=== PATIENT | female | born 1960 | race Caucasian/White ===

== ENCOUNTER → 2017-05-09 | Day surgery (SDC) | payer BC ==
[~2017-05-09] VITALS: Ht 165.1 cm; Wt 76.0 kg
[~2017-05-09] MED LIST: CHLORHEXIDINE GLUCONATE 2 % 1 PACK (2 CLOTHS) TOPICAL PRN; INSULIN HUMAN REGULAR 1,000 UNITS/10 ML VIAL SQ PRN; KETOROLAC TROMETHAMINE 60 MG/2 ML (IM) VIAL IM ONE; LACTATED RINGER'S 1000 ML INJ 1,000 ML IV ONE; LACTATED RINGER'S 1000 ML INJ 1,000 ML ONE; LACTATED RINGER'S 1000 ML IV PRN; METOPROLOL TARTRATE 25 MG TAB PO PRN; MIDAZOLAM HCL 2 MG/2 ML VIAL ONE; ONDANSETRON HCL 4 MG/2 ML VIAL IV PUSH ONE; POVIDONE IODINE 5% (ANTISEPSIS KIT) 4 APPLICATIONS EACH NARE PRN; PROPOFOL 200 MG/20 ML AMP IV ONE; SODIUM CHLORID 0.9% 500 ML IV PRN
[2017-05-09 07:28] VITALS: BP 134/85; PULSE 75; RESP 16; TEMP 97.6; O2SAT 97
--- NOTE | 2017-05-09 08:10 | RADRPT ---
EXAM DATE/TIME: 05/09/2017 08:01 [facility] COMPARISON: No previous studies available for comparison. INDICATIONS : Evaluate for pneumonia, pneumothorax or communicable disease. Pre op hysteroscopy and D&C. MEDICAL HISTORY : None. SURGICAL HISTORY : None. ENCOUNTER: Initial ACUITY: 1 day PAIN SCORE: 0/10 LOCATION: Bilateral chest FINDINGS: The lungs are under aerated with mild prominence to the cardiac silhouette. There is no pleural effu gonzalo or pneumothorax. The portion of the bony skeleton visualized is unremarkable. CONCLUSION: Mild prominence to the cardiac silhouette otherwise negative. Francisco Lucas MD FACR on May 09, 2017 at 8:06 Board Certified Radiologist. This report was verified electronically.
[2017-05-09 09:55] VITALS: PULSE 87
--- NOTE | 2017-05-09 10:47 | EKG ---
Date Performed: 05/09/2017 Time Performed: 07:51:05 PTAGE: 57 years EKG: Sinus rhythm INFERIOR MYOCARDIAL INFARCTION ABNORMAL ECG NO PREVIOUS TRACING DOCTOR: Abrahan Godoy Interpretating Date/Time 05/09/2017 10:45:18
[2017-05-09 11:30] VITALS: BP 138/82; PULSE 77; RESP 16; TEMP 97.9; O2SAT 94
--- NOTE | 2017-05-15 10:49 | PD.OP ---
Operative Report Date of Surgery: May 09, 2017 Preoperative Diagnosis: (1) Endometrial polyp (2) Abnormal perimenopausal bleeding (3) Primary adenocarcinoma of ascending colon Postoperative Diagnosis: (1) Endometrial polyp (2) Abnormal perimenopausal bleeding (3) Primary adenocarcinoma of ascending colon Procedure: hysteroscopy with polypectomy and dilation and curettage Anesthesia: Dr. England, general by LMA Surgeon: Roxana Noel Stripper And Printer(s): n/a Resident Surgeon: n/a Operation and Findings: Indications: Perimenopausal irregular bleeding, endometrial polyp suspected on imaging and in endometrial biopsy. Findings: Patient was found on hysteroscopic view to have [multiple uterine polyps] confirmed to be removed by repeat hysteroscopy post dilation and curettage and polyp extraction. Procedure: Patient was brought to the OR and laid supine on the table. After inducing general anesthesia she was positioned in low stirrups in dorso- lithotomy position. An open-sided speculum was placed in the vagina after Betadine prep and time out. The anterior lip of the cervix was grasped with a single tooth tenaculum, and the cervix was dilated to accept a standard rigid hysteroscope. After viewing, the polyps were extracted with polyps forceps. The endometrium was then thoroughly sampled using a medium sharp curet. Moderate tissue returned. A hysteroscopic view alternating with curettage confirmed that all the findings described above were included in the specimen. The procedure being complete, the instruments were removed, the patient was replaced supine and she was awakened. She was transferred to the PACU breathing on her own in stable condition. Sponge, needle, and instrument counts were correct. Roxana Noel MD May 15, 2017 10:49
== END | disposition home or self-care (01) ==
LOC: PHSDC 07:04
PROVIDERS: ATTEND Obstetrics & Gynecology
DX: N84.0 Polyp of corpus uteri (principal); N92.4 Excessive bleeding in the premenopausal period; C18.2 Malignant neoplasm of ascending colon; R94.31 Abnormal electrocardiogram [ECG] [EKG]; Z01.810 Encounter for preprocedural cardiovascular examination
CPT/HCPCS: 00952; 58558; 71010; 88305; 93005; J1885; J2250; J2405; J3010; J7120

== ENCOUNTER → 2017-06-08 | Day surgery (SDC) | payer BC ==
[~2017-06-08] VITALS: Ht 162.6 cm; Wt 74.0 kg
[~2017-06-08] MED LIST changes: +FAMOTIDINE 20 MG/2 ML VIAL ONE; +HEPARIN SODIUM - IV 10,000 UNITS/10 ML VIAL ONE; +HYDR-3516 PO; -KETOROLAC TROMETHAMINE 60 MG/2 ML (IM) VIAL IM ONE; +LABETALOL HCL 100 MG/20 ML VIAL ONE; -LACTATED RINGER'S 1000 ML INJ 1,000 ML IV ONE; -LACTATED RINGER'S 1000 ML INJ 1,000 ML ONE; +LIDOCAINE HCL 1% PF 30 ML VIAL ONE; +MORPHINE SULFATE 4 MG/ML INJ ONE; -ONDANSETRON HCL 4 MG/2 ML VIAL IV PUSH ONE; +SODIUM BICARBONATE 8.4% INJ 50 ML ONE; +SODIUM CHLORIDE 0.9% 20 ML VIAL ONE; +VANCOMYCIN HCL 1000 MG ON-CALL/NS 250 ML IV PRN; +VANCOMYCIN HCL 1000 MG VIAL ONE; +ceFAZolin INJ 1,000 MG VIAL ONE
[2017-06-08 08:49] VITALS: BP 136/94; PULSE 82; RESP 18; TEMP 97.5; O2SAT 96
--- NOTE | 2017-06-08 11:09 | HHI.PR ---
cc: Rishabh Phillips MD Immediate Post Op Note Procedure Date: Jun 08, 2017 Pre Op Diagnosis: Adenocarcinoma ascending colon with need for IV chemotherapy Post Op Diagnosis: Same Surgeon: Rishabh Phillips Aluminum Boat Inspector(s): None Procedure: Txtkjn-e-xocs placement with intraoperative use of fluoroscopy Complications: None Specimen(s) removed: None Estimated blood loss: <10 ml Anesthesia: TIVA Drains: None IVF (900 ml) Patient to: PACU Patient Condition: Good Date/Time of Procedure: SEE SURGICAL CARE RECORD Rishabh Phillips MD Jun 08, 2017 11:09
--- NOTE | 2017-06-08 11:17 | RADRPT ---
EXAM DATE/TIME: 06/08/2017 11:08 [facility] COMPARISON: No previous studies available for comparison. INDICATIONS : Post infusaport placement. MEDICAL HISTORY : Carcinoma, colon. SURGICAL HISTORY : Tonsillectomy. Lumbar spine surgery. D&C. ENCOUNTER: Subsequent ACUITY: 1 day PAIN SCORE: 0/10 LOCATION: Left chest FINDINGS: A single frontal expiratory view of the chest was performed. The lungs are symmetrically aerated and clear. No evidence of pneumothorax. Mediastinal structures are in the midline. Lljgts-h-Fhnd in g ood position. The cardio-mediastinal contours and bronchopulmonary markings are unremarkable for an expiratory exam . Osseous structures are intact. CONCLUSION: There is no pneumothorax. Francisco Lucas MD FACR on June 08, 2017 at 11:15 Board Certified Radiologist. This report was verified electronically.
--- NOTE | 2017-06-08 11:38 | MP ---
cc: ANSLEY BOBBY M.D., ABDUL J. M.D. DATE OF SURGERY: 06/08/2017 PROCEDURE Xyihbt-S-Ovix placement with intraoperative use of fluoroscopy. PREOPERATIVE DIAGNOSIS Adenocarcinoma of the colon with need for IV chemotherapy. POSTOPERATIVE DIAGNOSIS Adenocarcinoma of the colon with need for IV chemotherapy. ANESTHESIA TIVA. SURGEON Alan. ESTIMATED BLOOD LOSS Less than 10 mL. FLUIDS 900 mL crystalloid. COMPLICATIONS None. DRAINS None. SPECIMEN None. PROCEDURE IN DETAIL The patient was taken to the operating room and placed on the operating table in the supine position. A roll was placed behind the spine in a longitudinal fashion. IV sedation was begun and the neck and chest were prepped and draped bilaterally. A timeout was taken, confirming the correct patient, site and procedure to be performed. The patient was placed in Trendelenburg position and the left subclavian region was infiltrated with local anesthetic. The left subclavian vein was accessed on the second attempt and a guidewire passed and seen to pass into the superior vena cava under fluoroscopy. The needle was withdrawn and a port pocket created inferior to the exit site of the wire. This was infiltrated with local anesthetic, incised in the skin and the pocket created with electro-dissection. The catheter was brought through a short tunnel from the exit site of the wire to the pocket and secured in place. An introducer and sheath were passed over the guidewire and seen to travel smoothly into the superior vena cava. The guidewire and introducer were removed and the catheter placed down the sheath. The sheath was peeled away and the catheter was withdrawn so that the tip was in the superior vena cava. The catheter was trimmed to length and then attached to the port. The hub was then snapped over this further reinforcing the connector. The port was placed into the pocket and secured at two points with 2-0 Prolene suture. The port was accessed with a Penaloza needle and good blood return was achieved. The catheter was re-flushed with 5 mL of 100 units per milliliter of heparinized saline. The port pocket was re-inspected and seen to be hemostatic. The port pocket and percutaneous puncture site were both closed with interrupted and buried 3-0 Vicryl suture. The skin in the port site was closed with 5-0 PDS in a running subcuticular fashion. The wounds were dressed with Steri-Strips. The patient was taken back to the recovery room in stable condition. A stat. portable chest x-ray was taken and the result is pending at this time. Sponge, needle and instrument counts were reported to be correct. The patient tolerated the procedure well. MD LIDIA Peacock/AMY /11:21 AM /11:29 AM
[2017-06-08 12:50] VITALS: BP 130/81; PULSE 85; RESP 16; TEMP 98; O2SAT 100
== END | disposition home or self-care (01) ==
LOC: PHSDC 08:00
PROVIDERS: ATTEND Surgery Trauma Surgery
DX: C18.2 Malignant neoplasm of ascending colon (principal)
CPT/HCPCS: 00532; 36561; 71010; 77001; C1788; J1644; J2250; J2270; J3370; J7050; J7120; J0690

== ENCOUNTER 2018-07-17 19:08 | Observation (INO) ==
[2018-07-17] MEDS ORDERED: Acetaminophen 325 MG Tablet PO ONE (19:53)
--- NOTE | 2018-07-17 19:58 | XR ---
EXAM DATE: 07/17/2018 7:54 PM EDT AGE/SEX: 58 years / Female INDICATIONS: Short of breath, chest pain. Previous liver biopsy 1 day ago. CLINICAL DATA: This is the patient's initial encounter. Patient reports that signs and symptoms have been present for 1 day and indicates a pain score of 0/10. MEDICAL/SURGICAL HISTORY: Carcinoma, colon. Tonsillectomy. Lumbar spine surgery. D&C. COMPARISON: [facility], CHEST EXPIRATION ONLY, 06/08/2017. . FINDINGS: A single AP portable semierect view of the chest was obtained. The study is more mid inspiratory with crowding of the lung vasculature. There is apparent atelectasis at the lung bases with mild blunting of both costophrenic angles. The heart size remains mildly prominent. The previously noted left side d central venous line has been removed. CONCLUSION: 1. Mid inspiratory exam with crowding of the lung vasculature and apparent atelectasis at the lung b ases. 2. Mild cardiomegaly with no evidence of pulmonary edema. 3. Blunting of both costophrenic angles most characteristic of small effusions. Electronically signed by: Rishabh Frederick MD 07/17/2018 7:56 PM EDT
--- NOTE | 2018-07-17 19:58 | ED ---
HPI General Chief complaint: Abdominal Pain Stated complaint: Pain in R abdomen/sob Time Seen by Provider: 07/17/18 19:33 History of Present Illness HPI narrative: 58-year-old female who had a liver biopsy yesterday, here for evaluation of right upper quadrant abdominal pain and shortness of breath. Symptoms started shortly after the procedure yesterday and have persisted throughout the day today. Shortness of breath is at rest and worse with exertion. Pain is moderate, constant, sharp, worse with movements. She took an oxycodone at around 6:00 PM. Triage vital signs show temp of 99.7 with a heart rate of 110 and an oxygen saturation of 94% on room air. She denies cough or hemoptysis. She has history of colon cancer that was treated last year with resection and chemotherapy by Dr. Barajas. Related Data Home Medications Medication Instructions Recorded Confirmed duloxetine 60 mg PO DAILY 07/16/18 07/17/18 Allergies Allergy/AdvReac Type Severity Reaction Status Date / Time penicillin G Allergy Severe Hives Verified 07/17/18 19:20 shellfish derived Allergy Severe Hives Verified 07/17/18 19:20 Review of Systems ROS: all other systems reviewed are negative PMFSH Social History Social History Substance History: No History of Abuse Second Hand Smoke Exposure: No Smoking Status: Never smoker How Often Do You Have a Drink Containing Alcohol: Monthly or less Recent Travel in [place] within the Last 8 Weeks: No Recent Out of Country Travel within the Last 8 Weeks: No Immunization History Tetanus Immunization: Unsure Hx Influenza Vaccine This Season: No Exam Narrative Exam Narrative: GENERAL: Well-developed, well-nourished, awake, alert, no apparent distress. SKIN: Focused skin assessment warm/dry. Right upper quadrant abdomen/right lower/lateral chest wall with puncture wound from biopsy performed yesterday without warmth erythema, no fluctuance or induration. HEAD: Atraumatic. Normocephalic. EYES: Pupils equal and round. No scleral icterus. No injection or drainage. ENT: No nasal bleeding or discharge. Mucous membranes pink and moist. NECK: Trachea midline. No JVD. CARDIOVASCULAR: Tachycardic, rate 110, regular. RESPIRATORY: No accessory muscle use. Clear to auscultation. Breath sounds equal bilaterally. GASTROINTESTINAL: Abdomen soft, nondistended. Mild right upper quadrant tenderness without peritoneal signs. Normal bowel sounds. MUSCULOSKELETAL: No obvious deformities. No clubbing. No cyanosis. No edema. NEUROLOGICAL: Awake and alert. No obvious cranial nerve deficits. Motor grossly within normal limits. Normal speech. PSYCHIATRIC: Appropriate mood and affect; insight and judgment normal. Course Initial Documented Vital Signs Temperature 99.7 F H 07/17/18 19:17 Pulse Rate 115 H 07/17/18 19:17 Respiratory Rate 16 07/17/18 19:17 Blood Pressure 178/74 H 07/17/18 19:17 Pulse Oximetry 94 L 07/17/18 19:17 Last Documented Vital Signs Temperature 99.7 F H 07/17/18 19:17 Pulse Rate 100 H 07/17/18 21:09 Respiratory Rate 18 07/17/18 21:09 Blood Pressure 123/82 07/17/18 21:09 Pulse Oximetry 95 07/17/18 21:09 Medical Decision Making MDM Narrative Medical decision making narrative: Labs, vitals, and imaging studies were reviewed and were reviewed with the patient and the patient's significant other. Patient has a fever and tachycardia with shortness of breath and hypoxia after having a liver biopsy yesterday. Chest x-ray shows no pneumothorax. She was empirically started on Rocephin and azithromycin for possible pneumonia. CT abdomen pelvis and CT thorax both revealed atelectasis, right greater than left. Patient has been splinting because of the pain from her procedure. I offered to give her pain medication, however she has declined morphine, stating that she took oxycodone at home at around 6:00 PM. She will be admitted for further treatment and evaluation of sepsis/SIRS with possible pneumonia. Case discussed with hospitalist nurse practitioner Corine who will admit the hospitalist service. Medical Screen Exam Complete: Yes Emergency Medical Condition: Yes Differential Diagnosis Differential Diagnosis: Pneumothorax, pneumonia, abscess, perforated bowel, Medical Records Medical records reviewed: Yes I reviewed the patient's medical records. Lab Data Result diagrams: 07/17/18 20:10 07/17/18 20:10 Lab Results 07/17/18 07/17/18 07/17/18 Range/Units 20:10 20:10 20:10 CBC w Diff Auto diff final WBC 11.9 H (4.0-11.0) th/mm3 RBC 3.80 L (4.00-5.30) mil/mm3 Hgb 11.6 (11.6-15.3) gm/dL Hct 34.3 L (35.0-46.0) % MCV 90.2 (80.0-100.0) fL MCH 30.4 (27.0-34.0) pg MCHC 33.7 (32.0-36.0) % RDW 13.4 (11.6-17.2) % Plt Count 242 (150-450) th/mm3 MPV 6.4 L (7.0-11.0) fL Neut % (Auto) 73.9 H (16.0-70.0) % Lymph % (Auto) 16.1 (9.0-44.0) % [place] % (Auto) 9.2 H (0.0-8.0) % Eos % (Auto) 0.6 (0.0-4.0) % Baso % (Auto) 0.2 (0.0-2.0) % Neut # (Auto) 8.8 H (1.8-7.7) th/mm3 Lymph # (Auto) 1.9 (1.0-4.8) th/mm3 [place] # (Auto) 1.1 H (0.0-0.9) th/mm3 Eos # (Auto) 0.1 (0.0-0.4) th/mm3 Baso # (Auto) 0.0 (0.0-0.2) th/mm3 WBC Differential . Differential Comment . PT 12.6 H (9.8-11.6) sec INR 1.2 Ratio APTT 28.7 (24.3-30.1) sec Sodium 138 (136-145) meq/L Potassium 3.7 (3.5-5.1) meq/L Chloride 102 (98-107) meq/L Carbon Dioxide 28.7 (21.0-32.0) meq/L Anion Gap 7 (5-15) meq/L BUN 23 H (7-18) mg/dL Creatinine 0.71 (0.50-1.00) mg/dL Estimated GFR 85 L (>89) mL/min Random Glucose 112 H (74-106) mg/dL Lactic Acid (0.4-2.0) mmol/L Calcium 8.8 (8.5-10.1) mg/dL Total Bilirubin 0.4 (0.2-1.0) mg/dL AST 42 H (15-37) U/L ALT 34 (10-53) U/L Alkaline Phosphatase 121 H (45-117) U/L Total Protein 7.3 (6.4-8.2) g/dL Albumin 3.4 (3.4-5.0) g/dL 07/17/18 Range/Units 20:10 CBC w Diff WBC (4.0-11.0) th/mm3 RBC (4.00-5.30) mil/mm3 Hgb (11.6-15.3) gm/dL Hct (35.0-46.0) % MCV (80.0-100.0) fL MCH (27.0-34.0) pg MCHC (32.0-36.0) % RDW (11.6-17.2) % Plt Count (150-450) th/mm3 MPV (7.0-11.0) fL Neut % (Auto) (16.0-70.0) % Lymph % (Auto) (9.0-44.0) % [place] % (Auto) (0.0-8.0) % Eos % (Auto) (0.0-4.0) % Baso % (Auto) (0.0-2.0) % Neut # (Auto) (1.8-7.7) th/mm3 Lymph # (Auto) (1.0-4.8) th/mm3 [place] # (Auto) (0.0-0.9) th/mm3 Eos # (Auto) (0.0-0.4) th/mm3 Baso # (Auto) (0.0-0.2) th/mm3 WBC Differential Differential Comment PT (9.8-11.6) sec INR Ratio APTT (24.3-30.1) sec Sodium (136-145) meq/L Potassium (3.5-5.1) meq/L Chloride (98-107) meq/L Carbon Dioxide (21.0-32.0) meq/L Anion Gap (5-15) meq/L BUN (7-18) mg/dL Creatinine (0.50-1.00) mg/dL Estimated GFR (>89) mL/min Random Glucose (74-106) mg/dL Lactic Acid 0.8 (0.4-2.0) mmol/L Calcium (8.5-10.1) mg/dL Total Bilirubin (0.2-1.0) mg/dL AST (15-37) U/L ALT (10-53) U/L Alkaline Phosphatase (45-117) U/L Total Protein (6.4-8.2) g/dL Albumin (3.4-5.0) g/dL Imaging Data Radiologist's impression: Chest X-Ray 07/17/18 19:38 CONCLUSION: 1. Mid inspiratory exam with crowding of the lung vasculature and apparent atelectasis at the lung bases. 2. Mild cardiomegaly with no evidence of pulmonary edema. 3. Blunting of both costophrenic angles most characteristic of small effusions. Abdomen/Pelvis CT 07/17/18 20:04 CONCLUSION: 1. Mild postbiopsy changes adjacent to the known large liver lesion with several adjacent small gas bubbles along the lesion and minimal amount of fluid and gas bubbles along the lateral anterior margin of the liver. 2. Atelectasis in the lung bases right greater than left. 3. Cardiomegaly and small pericardial effusion. Chest CT 07/17/18 20:04 CONCLUSION: 1. Atelectasis in both lung bases right greater than left. 2. There is no pneumothorax. 3. Mild cardiomegaly and small pericardial effusion. Discharge Plan Discharge Disposition Patient Disposition: 30 Still Patient Discharge Condition Condition: Stable Discharge Details Diagnosis: Sepsis, Hypoxia Physicians Team ED Provider: Jamie Edmonds Primary Care Provider: Marilynn Quarles Rxs /Orders / Referrals /Forms Prescriptions: No Action duloxetine 60 mg Capsule,Delayed Release(Dr/Ec) 60 mg PO DAILY RF: 0 Status ED Status: With Doctor
[2018-07-17] MEDS ORDERED: Sod Chloride 0.9% Inj 1,000 ML IV.SIG SCH (20:00)
[2018-07-17] MEDS ORDERED: Azithromycin Inj 500 MG in Sodium Chlor 0.9% Inj 250 ML IV.SIG ONE (20:04)
[2018-07-17 20:21] LABS: Baso % (Auto) 0.2 % (0.0-2.0); Eos # (Auto) 0.1 th/mm3 (0.0-0.4); Eos % (Auto) 0.6 % (0.0-4.0); Hematocrit 34.3 % (35.0-46.0); Hemoglobin 11.6 gm/dL (11.6-15.3); Lymph # (Auto) 1.9 th/mm3 (1.0-4.8); Lymph % (Auto) 16.1 % (9.0-44.0); Mean Corpuscular HGB Conc 33.7 % (32.0-36.0); Mean Corpuscular Hemoglobin 30.4 pg (27.0-34.0); Mean Corpuscular Volume 90.2 fL (80.0-100.0); Mean Platelet Volume 6.4 fL (7.0-11.0); Mono # (Auto) 1.1 th/mm3 (0.0-0.9); Mono % (Auto) 9.2 % (0.0-8.0); Neut # (Auto) 8.8 th/mm3 (1.8-7.7); Neut % (Auto) 73.9 % (16.0-70.0); Platelet Count 242 th/mm3 (150-450); Red Cell Distribution Width 13.4 % (11.6-17.2); White Blood Count 11.9 th/mm3 (4.0-11.0)
[2018-07-17 20:29] LABS: Chloride 102 meq/L (98-107); Potassium 3.7 meq/L (3.5-5.1); Sodium 138 meq/L (136-145)
[2018-07-17 20:32] LABS: Calcium 8.8 mg/dL (8.5-10.1)
[2018-07-17 20:33] LABS: Albumin 3.4 g/dL (3.4-5.0); Anion Gap 7 meq/L (5-15); Blood Urea Nitrogen 23 mg/dL (7-18); Carbon Dioxide 28.7 meq/L (21.0-32.0); Glucose,Random 112 mg/dL (74-106)
[2018-07-17 20:35] LABS: Activated Partial Thrombo Time 28.7 sec (24.3-30.1); INR 1.2 Ratio; Prothrombin Time 12.6 sec (9.8-11.6)
[2018-07-17 20:36] LABS: Alanine Aminotransferase 34 U/L (10-53); Aspartate Aminotransferase 42 U/L (15-37); Glomerular Filtration Rate 85 mL/min (>89)
[2018-07-17 20:37] LABS: Total Protein 7.3 g/dL (6.4-8.2)
[2018-07-17 20:39] LABS: Alkaline Phosphatase 121 U/L (45-117)
--- NOTE | 2018-07-17 21:03 | CT ---
EXAM DATE: 07/17/2018 8:52 PM EDT AGE/SEX: 58 years / Female INDICATIONS: Right chest pain post liver biopsy one day ago. Shortness of breath. CLINICAL DATA: This is the patient's initial encounter. Patient reports that signs and symptoms have been present for 1 day and indicates a pain score of 10/10. MEDICAL/SURGICAL HISTORY: Carcinoma, colon. Fusion, lumbar. RADIATION DOSE: 14.91 CTDI (mGy) ; Combined studies COMPARISON: No prior exams available for comparison. TECHNIQUE: Multiple contiguous axial images were obtained through the chest without contrast. Image s were obtained in suspended respiration using multiple row detector helical technique. Using automa lola exposure control and adjustment of the mA and/or kV according to patient size, radiation dose was kept as low as reasonably achievable to obtain optimal diagnostic quality images. DICOM format imag e data is available electronically for review and comparison. FINDINGS: Lungs: The lungs are symmetrically aerated. Atelectasis is present in the lung bases right greater t chavez left. Nodular densities are seen. There is no pneumothorax. Mediastinum: There is good visualization of the great vessels of the middle mediastinum. No evidenc e of mediastinal or hilar adenopathy/mass. As mild cardiomegaly. There is a small amount pericardial effusion. Pleurae: No evidence of focal thickening or pleural effusion. Axillae: Unremarkable. Bony Structures: Unremarkable. Miscellaneous: The examination was extended to include the upper abdomen, and both adrenal glands ar e normal in size and configuration. CONCLUSION: 1. Atelectasis in both lung bases right greater than left. 2. There is no pneumothorax. 3. Mild cardiomegaly and small pericardial effusion. Electronically signed by: Rishabh Frederick MD 07/17/2018 9:02 PM EDT
--- NOTE | 2018-07-17 21:10 | CT ---
EXAM DATE: 07/17/2018 8:54 PM EDT AGE/SEX: 58 years / Female INDICATIONS: Right upper quadrant pain post liver biopsy one day ago. CLINICAL DATA: This is the patient's initial encounter. Patient reports that signs and symptoms have been present for 1 day and indicates a pain score of 10/10. MEDICAL/SURGICAL HISTORY: Carcinoma, colon. Fusion, lumbar. RADIATION DOSE: 14.91 CTDI (mGy) ; Combined studies COMPARISON: POI, CT ABDOMEN AND PELVIS W/O CONTRAST, 06/27/2018. . TECHNIQUE: Multiple contiguous axial images were obtained through the abdomen. Images were obtained using multiple row detector helical technique. Using automated exposure control and adjustment of the mA and/or kV according to patient size, radiation dose was kept as low as reasonably achievable to o btain optimal diagnostic quality images. DICOM format image data is available electronically for rev iew and comparison. FINDINGS: Lower Lungs: Atelectasis in the lung bases right greater than left. There is mild cardiomegaly and sm all pericardial effusion. Liver: The liver remains normal in size. The large low-attenuation lesion in the anterior lower right lobe is again noted and does not appear significantly changed. This measures up to at least 6.5 cm i n diameter. There are mild adjacent postbiopsy changes with small amount of air adjacent to the lesio n. There is a small amount of air and fluid along the anterior lateral liver margin as well. The smal l cystic structure is again noted adjacent to the larger mass. Spleen: Homogeneous density without enlargement. Pancreas: Unremarkable without mass or calcification. Kidneys: Normal in size and shape. No evidence of mass or hydronephrosis. Adrenal Glands: Unremarkable. Aorta: The aorta and proximal iliac vessels are grossly unremarkable without aneurysmal dilation. Bowel/Mesentery: No oral contrast was given limiting the sensitivity. There are postoperative change s status post partial colectomy with anastomotic ed. There is scattered diverticuli. There is no free air or fluid. Abdominal Wall: Intact. Retroperitoneum: No evidence of adenopathy in the retrocrural, para-aortic, or deep pelvic regions. Bladder: Contours are smooth. Reproductive Organs: There is a small cystic structure in the left adnexa measuring 1.9 cm. Uterus a nd right adnexa are unremarkable. Inguinal: The inguinal region is unremarkable without evidence of adenopathy. Bony Structures: Unremarkable. CONCLUSION: 1. Mild postbiopsy changes adjacent to the known large liver lesion with several adjacent small gas bubbles along the lesion and minimal amount of fluid and gas bubbles along the lateral anterior trena n of the liver. 2. Atelectasis in the lung bases right greater than left. 3. Cardiomegaly and small pericardial effusion. Electronically signed by: Rishabh Frederick MD 07/17/2018 9:09 PM EDT
[2018-07-17] MEDS ORDERED: Acetaminophen 325 MG Tablet PO PRN (21:58)
[2018-07-18 07:30] LABS: Baso % (Auto) 0.1 % (0.0-2.0); Eos # (Auto) 0.1 th/mm3 (0.0-0.4); Eos % (Auto) 1.5 % (0.0-4.0); Hematocrit 30.5 % (35.0-46.0); Hemoglobin 10.6 gm/dL (11.6-15.3); Lymph # (Auto) 1.9 th/mm3 (1.0-4.8); Lymph % (Auto) 24.2 % (9.0-44.0); Mean Corpuscular HGB Conc 34.8 % (32.0-36.0); Mean Platelet Volume 6.6 fL (7.0-11.0); Mono # (Auto) 0.8 th/mm3 (0.0-0.9); Neut # (Auto) 4.9 th/mm3 (1.8-7.7); Neut % (Auto) 64.2 % (16.0-70.0); Platelet Count 205 th/mm3 (150-450); Red Blood Count 3.43 mil/mm3 (4.00-5.30); Red Cell Distribution Width 13.6 % (11.6-17.2); White Blood Count 7.7 th/mm3 (4.0-11.0)
[2018-07-18 07:31] LABS: Chloride 109 meq/L (98-107); Potassium 3.7 meq/L (3.5-5.1); Sodium 145 meq/L (136-145)
[2018-07-18 07:34] LABS: Calcium 8.3 mg/dL (8.5-10.1)
[2018-07-18 07:35] LABS: Anion Gap 7 meq/L (5-15); Blood Urea Nitrogen 16 mg/dL (7-18); Carbon Dioxide 29.3 meq/L (21.0-32.0); Glucose,Random 89 mg/dL (74-106)
[2018-07-18 07:38] LABS: Glomerular Filtration Rate Greater Than 89 mL/min (>89)
--- NOTE | 2018-07-18 11:25 | P.HP ---
History of Present Illness Primary Care Physician: Marilynn Quarles Chief Complaint: Chest discomfort, abdominal pain History of Present Illness: 58-year-old female with known history of colon cancer who is underwent liver biopsy secondary to liver mass on Sunday of this week. Ever since her biopsy the patient has had increased pain in her right abdomen. Because of that she has not been taking deep breaths. Patient states that when she takes deep breath it causes significant amount of pain so she blunts her respirations. Patient was told only to take Advil when she was discharged from the biopsy procedure. Patient states that the pain was more severe and she was taking some oxycodone at home with minimal relief. Because the pain did not improve and she started developing some shortness of breath, pleuritic chest pain she came to the hospital for evaluation. Upon evaluation patient did undergo CT scan which did show atelectasis of the lungs bilaterally right greater than left. CT the abdomen did not show any acute finding. Did indicate post biopsy findings. No lung mass, infiltrates, pneumonia appreciated on CT. Patient denies any fever, chills. She still indicates that she does have pain on her right upper abdomen when she takes a deep breath. - Diagnosis (1) Atelectasis (2) Pleuritic chest pain Inpatient Certification: I certify that the inpatient services were ordered in accordance with Medicare regulations governing the order. This includes certification that hospital inpatient services are reasonable and necessary and in the case of services not specified as inpatient-only under 42 CFR 419.22(n), that they are appropriately provided as inpatient services in accordance to with the 2-midnight benchmark under 43 CFR 412.3(e) Estimated Total Length of Stay (Days): 2 Plans for Post Hospital Care: Home Review of Systems All other systems reviewed negative except as stated in HPI Respiratory: Reports pain with cough, Reports shortness of breath PMFSH - History History Provided By: Patient, Family Member - Medical History Medical History: Medical History (Last Reviewed 07/18/18 @ 11:15 by LEOPOLDO Black) Abnormal colonoscopy Colon cancer - Surgical History Surgical History: Surgical History (Last Updated 07/18/18 @ 11:14 by LEOPOLDO Black) History of liver biopsy History of lumbar surgery - Family History Family History: Family History (Last Updated 07/18/18 @ 11:15 by LEOPOLDO Black) Other No pertinent family history - Tobacco History Second Hand Smoke Exposure: No Tobacco Use In Past 30 Days: No Smoking Status: Never smoker - Alcohol History How Often Do You Have a Drink Containing Alcohol: Never - Substance Use History Substance History: No History of Abuse - Travel History Recent Travel in the [place] Within the Last 8 Weeks: No Recent Travel Out of the Country Within the Last 8 Weeks: No - Immunization History Tetanus Immunization: Unsure Hx Influenza Vaccine This Season: No Medications and Allergies Active Medications: Active Medications Acetaminophen (Tylenol) 650 mg PO Q4H PRN PRN Reason: Temp > 100.4 Sodium Chloride (Ns Inj) 1,000 mls @ 0 mls/hr IV.SIG .Q0M GIRISH Last Infusion: 07/17/18 21:33 Dose: Infused Ondansetron HCl (Zofran Inj) 4 mg IV.PUSH Q6H PRN PRN Reason: NAUSEA OR VOMITING Oxycodone/Acetaminophen (Percocet 5/325 Mg) 1 tab PO Q4H PRN PRN Reason: pain 1 to 10 Last Admin: 07/18/18 04:13 Dose: 1 tab Allergies Allergy/AdvReac Type Severity Reaction Status Date / Time penicillin G Allergy Severe Hives Verified 07/17/18 19:20 shellfish derived Allergy Severe Hives Verified 07/17/18 19:20 Home Medications Medication Instructions Recorded Confirmed Type duloxetine 60 mg PO DAILY 07/16/18 07/17/18 History Exam Vital signs: Vital Signs 07/17/18 19:17 07/17/18 20:18 07/17/18 21:09 Temperature 99.7 F H Pulse Rate 115 H 104 H 100 H Respiratory Rate 16 18 Blood Pressure 178/74 H 123/82 Pulse Oximetry 94 L 94 L 95 07/17/18 22:31 07/17/18 22:59 07/18/18 00:00 Temperature 97.4 F L 96.2 F L Pulse Rate 100 H 101 H 100 H Respiratory Rate 18 16 16 Blood Pressure 131/78 128/84 113/72 Pulse Oximetry 96 95 94 L 07/18/18 04:00 07/18/18 08:00 Temperature 96.1 F L 98.8 F Pulse Rate 96 H 93 H Respiratory Rate 16 19 Blood Pressure 120/81 126/85 Pulse Oximetry 93 L 94 L Intake & Output 09/10/2207/18/18 07/18/18 18:59 06:59 18:59 Intake Total 1350 / 1350 240 / 240 Output Total 201 / 201 Balance 1350 / 1350 39 / 39 Weight 72.5 kg Intake: IV 1350 / 1350 Azithromycin Inj 500 MG In NS 250 / 250 Inj 250 ML @ 250 mls/hr IV.SIG ONCE ONE Rx#:[id number] NS Inj 1,000 ML @ Wide Open IV. 1000 / 1000 SIG .Q0M GIRISH Rx#:[id number] Rocephin Inj 1,000 MG In NS Inj 100 / 100 100 ML @ 200 mls/hr IV.SIG ONCE ONE Rx#:[id number] Oral 240 / 240 Output: Urine 200 / 200 Stool Other: Date of Last Bowel Movement 07/18/18 Narrative: GENERAL: Well-developed, well-nourished, in no acute distress. alert and orientated HEENT: Head is normocephalic without any lesions or masses noted. Facial features are symmetric. Eyes: Pupils equal round reactive to light. Extraocular muscles are intact. Conjunctivae were clear. Oropharyngeal: Pharynx without any erythema edema. Tongue is midline without deviation. Buccal mucosa is moist without any masses or lesions NECK: Supple without any masses. Trachea midline no deviation. No JVD, no bruits are appreciated CARDIAC: Regular rhythm, regular rate. S1/S2 are heard. No murmurs gallops or rubs. LUNGS: Clear to auscultation bilaterally. No wheeze, rhonchi or rales. No use of accessory muscles on inspiration or expiration. Pain in the right abdomen with deep inspiration ABDOMEN: Soft, nontender. Nondistended. Bowel sounds heard in all 4 quadrants. No organomegaly or masses. Negative rebound, negative guarding EXTREMITIES: No edema, pulses are equal bilaterally. No cyanosis or clubbing NEUROLOGY: Mood and affect appear appropriate. Cranial nerves II through XII grossly intact. Muscle strength 5/5 in upper and lower extremities bilaterally. Deep tendon reflexes are 2+ in upper and lower extremities bilaterally. Results - Labs CBC & Chem 7: 07/18/18 07:04 07/18/18 07:04 Labs: Laboratory Results - last 24 hr 07/17/18 07/17/18 07/17/18 20:10 20:10 20:10 CBC w Diff Auto diff final WBC 11.9 H RBC 3.80 L Hgb 11.6 Hct 34.3 L MCV 90.2 MCH 30.4 MCHC 33.7 RDW 13.4 Plt Count 242 MPV 6.4 L Neut % (Auto) 73.9 H Lymph % (Auto) 16.1 [place] % (Auto) 9.2 H Eos % (Auto) 0.6 Baso % (Auto) 0.2 Neut # (Auto) 8.8 H Lymph # (Auto) 1.9 [place] # (Auto) 1.1 H Eos # (Auto) 0.1 Baso # (Auto) 0.0 WBC Differential . Differential Comment . PT 12.6 H INR 1.2 APTT 28.7 Sodium 138 Potassium 3.7 Chloride 102 Carbon Dioxide 28.7 Anion Gap 7 BUN 23 H Creatinine 0.71 Estimated GFR 85 L POC Glucose Random Glucose 112 H Lactic Acid Calcium 8.8 Total Bilirubin 0.4 AST 42 H ALT 34 Alkaline Phosphatase 121 H Total Protein 7.3 Albumin 3.4 07/17/18 07/18/18 07/18/18 20:10 07:04 07:04 CBC w Diff Auto diff final WBC 7.7 RBC 3.43 L Hgb 10.6 L Hct 30.5 L MCV 89.0 MCH 31.0 MCHC 34.8 RDW 13.6 Plt Count 205 MPV 6.6 L Neut % (Auto) 64.2 Lymph % (Auto) 24.2 [place] % (Auto) 10.0 H Eos % (Auto) 1.5 Baso % (Auto) 0.1 Neut # (Auto) 4.9 Lymph # (Auto) 1.9 [place] # (Auto) 0.8 Eos # (Auto) 0.1 Baso # (Auto) 0.0 WBC Differential . Differential Comment . PT INR APTT Sodium 145 Potassium 3.7 Chloride 109 H Carbon Dioxide 29.3 Anion Gap 7 BUN 16 Creatinine 0.59 Estimated GFR Greater than 89 POC Glucose Random Glucose 89 Lactic Acid 0.8 Calcium 8.3 L Total Bilirubin AST ALT Alkaline Phosphatase Total Protein Albumin 07/18/18 09:42 CBC w Diff WBC RBC Hgb Hct MCV MCH MCHC RDW Plt Count MPV Neut % (Auto) Lymph % (Auto) [place] % (Auto) Eos % (Auto) Baso % (Auto) Neut # (Auto) Lymph # (Auto) [place] # (Auto) Eos # (Auto) Baso # (Auto) WBC Differential Differential Comment PT INR APTT Sodium Potassium Chloride Carbon Dioxide Anion Gap BUN Creatinine Estimated GFR POC Glucose 151 H Random Glucose Lactic Acid Calcium Total Bilirubin AST ALT Alkaline Phosphatase Total Protein Albumin - Imaging Impressions Chest X-Ray 07/17/18 19:38 CONCLUSION: 1. Mid inspiratory exam with crowding of the lung vasculature and apparent atelectasis at the lung bases. 2. Mild cardiomegaly with no evidence of pulmonary edema. 3. Blunting of both costophrenic angles most characteristic of small effusions. Abdomen/Pelvis CT 07/17/18 20:04 CONCLUSION: 1. Mild postbiopsy changes adjacent to the known large liver lesion with several adjacent small gas bubbles along the lesion and minimal amount of fluid and gas bubbles along the lateral anterior margin of the liver. 2. Atelectasis in the lung bases right greater than left. 3. Cardiomegaly and small pericardial effusion. Chest CT 07/17/18 20:04 CONCLUSION: 1. Atelectasis in both lung bases right greater than left. 2. There is no pneumothorax. 3. Mild cardiomegaly and small pericardial effusion. Caprini VTE Risk Assessment Caprini VTE Risk Assessment: No/Low Risk (score <= 1) Caprini Risk Assessment Model: Point Value = 1 Point Value = 2 Point Value = 3 Point Value = 5 Age 41-60 Minor surgery BMI > 25 kg/m2 Swollen legs Varicose veins or History of unexplained or recurrent spontaneous Oral contraceptives or hormone replacement Sepsis (< 1 month) Serious lung disease, including pneumonia (< 1 month) Abnormal pulmonary function Acute myocardial infarction Congestive heart failure (< 1 month) History of inflammatory bowel disease Medical patient at bed rest Age 61-74 Arthroscopic surgery Major open surgery (> 45 min) Laparoscopic surgery (> 45 min) Malignancy Confined to bed (> 72 hours) Immobilizing plaster cast Central venous access Age >= 75 History of VTE Family history of VTE Factor V Leiden Prothrombin [id number] Lupus anticoagulant Anticardiolipin antibodies Elevated serum homocysteine Heparin-induced thrombocytopenia Other congenital or acquired thrombophilia Stroke (< 1 month) Elective arthroplasty Hip, pelvis, or leg fracture Acute spinal cord injury (< 1 month) Prophylaxis Regimen: Total Risk Factor Score Risk Level Prophylaxis Regimen 0-1 Low Early ambulation 2 Moderate Order ONE of the following: *Sequential Compression Device (SCD) *Heparin 5000 units SQ BID 3-4 Higher Order ONE of the following medications: *Heparin 5000 units SQ TID *Enoxaparin/Lovenox 40 mg SQ daily (WT < 150 kg, CrCl > 30 mL/min) *Enoxaparin/Lovenox 30 mg SQ daily (WT < 150 kg, CrCl > 10-29 mL/min) *Enoxaparin/Lovenox 30 mg SQ BID (WT < 150 kg, CrCl > 30 mL/min) AND/OR *Sequential Compression Device (SCD) 5 or more Highest Order ONE of the following medications: *Heparin 5000 units SQ TID (Preferred with Epidurals) *Enoxaparin/Lovenox 40 mg SQ daily (WT < 150 kg, CrCl > 30 mL/min) *Enoxaparin/Lovenox 30 mg SQ daily (WT < 150 kg, CrCl > 10-29 mL/min) *Enoxaparin/Lovenox 30 mg SQ BID (WT < 150 kg, CrCl > 30 mL/min) AND *Sequential Compression Device (SCD) Assessment and Plan - Assessment (1) Atelectasis Code(s): J98.11 - Atelectasis Status: Acute (2) Pleuritic chest pain Code(s): R07.81 - Pleurodynia Status: Acute - Plan Pleuritic chest pain with atelectasis -Patient with recent liver biopsy, blunting of her respirations and pain on deep inspiration causing atelectasis -Start incentive spirometry DVT prevention -Sequential compression devices Discharge Planning: Discharge home in stable condition Activity: Ad shaunna. Diet: Regular diet Medication per medication reconciliation Follow-up with primary medical doctor in 1 week
[2018-07-18 12:51] VITALS: BP 123/81; PULSE 90; RESP 21; TEMP 98.5; O2SAT 95
[2018-07-18] MEDS ORDERED: Azithromycin Inj 500 MG in Sodium Chlor 0.9% Inj 250 ML IV.SIG SCH (21:00)
== END 2018-07-18 17:35 | disposition home or self-care (01) ==
LOC: PHED 19:08 → INTOOBSV 21:44 → PHEDA 21:44 → PH3 22:40 → PHEDA 22:40
PROVIDERS: ADMIT Family Medicine; ATTEND Family Medicine
DX: I31.3 Pericardial effusion (noninflammatory); R09.02 Hypoxemia; K73.9 Chronic hepatitis, unspecified; R16.0 Hepatomegaly, not elsewhere classified; Z85.038 Personal history of other malignant neoplasm of large intestine; I51.7 Cardiomegaly; R07.81 Pleurodynia; R06.02 Shortness of breath; R10.11 Right upper quadrant pain; J98.11 Atelectasis; R00.0 Tachycardia, unspecified

== ENCOUNTER 2018-09-23 07:40 | Observation (INO) ==
[2018-09-23] MEDS ORDERED: Gelatin 12 MM/7 MM Topical Foam OTHER ONE (07:41)
[2018-09-23] MEDS ORDERED: Iohexol 350 MG/ML 50 ML Vial (for Rad Diag) IVCONTRAST ONE (07:41)
[2018-09-23] MEDS ORDERED: DOXORUBICIN IV.PUSH ONE (08:00)
[2018-09-23] MEDS ORDERED: Sodium Chloride 0.9% 2 ML Flush PRN IV.FLUSH (08:22)
[2018-09-23] MEDS ORDERED: Metoprolol Tartrate 25 MG Tablet PO ONE (08:27)
[2018-09-23] MEDS ORDERED: Chlorhexidine Gluconate 2% 1 Pack (2 Cloths) TOPICAL ONE (08:27)
[2018-09-23] MEDS ORDERED: Ketorolac Inj 30 MG/ML (IVP) Vial IV.PUSH ONE (08:30)
[2018-09-23] MEDS ORDERED: Dexamethasone Inj 20 MG/5 ML Vial IV.PUSH ONE (08:30)
[2018-09-23] MEDS ORDERED: Pantoprazole Inj 40 MG Vial IV.PUSH ONE (08:30)
[2018-09-23 08:31] LABS: Baso % (Auto) 0.3 % (0.0-2.0); Eos # (Auto) 0.2 th/mm3 (0.0-0.4); Eos % (Auto) 1.8 % (0.0-4.0); Hematocrit 31.3 % (35.0-46.0); Hemoglobin 10.3 gm/dL (11.6-15.3); Lymph # (Auto) 1.3 th/mm3 (1.0-4.8); Lymph % (Auto) 14.3 % (9.0-44.0); Mean Corpuscular HGB Conc 32.9 % (32.0-36.0); Mean Corpuscular Hemoglobin 28.7 pg (27.0-34.0); Mean Corpuscular Volume 87.2 fL (80.0-100.0); Mean Platelet Volume 6.5 fL (7.0-11.0); Mono # (Auto) 1.3 th/mm3 (0.0-0.9); Mono % (Auto) 13.6 % (0.0-8.0); Neut # (Auto) 6.6 th/mm3 (1.8-7.7); Platelet Count 319 th/mm3 (150-450); Red Blood Count 3.59 mil/mm3 (4.00-5.30); Red Cell Distribution Width 14.7 % (11.6-17.2); White Blood Count 9.4 th/mm3 (4.0-11.0)
[2018-09-23 08:40] LABS: Activated Partial Thrombo Time 28.6 sec (23.4-31.7); INR 1.3 Ratio; Prothrombin Time 13.1 sec (9.8-11.6)
[2018-09-23 08:46] LABS: Calcium 8.6 mg/dL (8.5-10.1); Carbon Dioxide 27.3 meq/L (21.0-32.0); Potassium 3.7 meq/L (3.5-5.1)
[2018-09-23] MEDS ORDERED: Vancomycin Inj 1,000 MG in Sodium Chlor 0.9% Inj 250 ML IV.SIG ONE (08:54)
[2018-09-23] MEDS ORDERED: Sodium Chlor 0.9% Inj 500 ML IV.SIG SCH (09:00)
[2018-09-23] MEDS: Sod Chloride 0.9% Inj 1,000 ML IV.SIG SCH ×2 (09:00→21:24)
[2018-09-23] MEDS ORDERED: Heparin 10,000 UNITS/10 ML Vial (for IV use) ONE (09:45)
[2018-09-23] MEDS ORDERED: Lidocaine PF 1% Inj 30 ML Vial ONE (10:45)
[2018-09-23] MEDS ORDERED: fentaNYL Citrate Inj 100 MCG/2 ML Ampul ONE (13:29)
[2018-09-23 14:27] LABS: Hematocrit 31.1 % (35.0-46.0); Hemoglobin 10.3 gm/dL (11.6-15.3)
[2018-09-23] MEDS ORDERED: Bisacodyl 10 MG Supp RECTAL PRN (14:58)
--- NOTE | 2018-09-23 15:05 | P.HPIM ---
History of Present Illness Primary Care Physician: Marilynn Quarles History of Present Illness: 58 year old female with history of colorectal cancer s/p primary resection with adjuvant chemo and recent new liver and spleen lesions underwent Y-90 hepatic radioembolization today with IR to allow for downstaging and enlargement of future liver remnant in anticipation of trisegmentectomy. In follow-up for her colon cancer, she was found to have a solitary 7.6 cm right lobe liver mass on CT A/P in June. The mass was biopsied showing nonspecific hepatitis. She was referred to Dr. Phillips for resection and MRI had shown that the mass increased in size to 11.6 cm and there were also new spleen lesions. There was a concern for malignancy therefore oncology recommended resection, and patient was referred to IR first for chemoembolization. Hospitalist service has been asked to admit the patient under observation for pain control. The patient is seen in recovery. She is comfortable and denies any significant pain. She denies chest pain, shortness of breath, abdominal pain, nausea, or vomiting. She denies any adverse reactions with pain medications in the past. PMH: colorectal cancer (diagnosed on routine screening colonoscopy 2017 s/p right hemicolectomy and chemo), enlarging liver and splenic lesions 2018, diverticulosis Surgical Hx: right hemicolectomy, ruptured disc, tubal ligation, colonoscopies Family Hx: mother from brain aneurysm, paternal grandfather had colon cancer Social Hx: , never smoked, denies EtOH - Diagnosis (1) Liver mass Review of Systems All other systems reviewed negative except as stated in HPI PMFSH - History History Provided By: Patient - Medical History Medical History: Medical History (Last Updated 09/23/18 @ 15:34 by Faina Gonzalez MD) Liver mass Colon cancer - Surgical History Surgical History: Surgical History (Last Updated 09/23/18 @ 15:33 by Faina Gonzalez MD) H/O right hemicolectomy History of liver biopsy History of lumbar surgery - Family History Family History: Family History (Last Updated 09/23/18 @ 15:34 by Faina Gonzalez MD) Mother Brain aneurysm - Social History I have reviewed the patient's Social History: Yes - Tobacco History Second Hand Smoke Exposure: No Smoking Status: Never smoker - Alcohol History How Often Do You Have a Drink Containing Alcohol: Never - Substance Use History Substance History: No History of Abuse Medications and Allergies Active Medications: Active Medications Sodium Chloride (Ns Inj) 1,000 mls @ 150 mls/hr IV.SIG .Q6H40M [facility] Last Admin: 09/23/18 09:00 Dose: 150 mls/hr Lactated Ringer's (Lr 1000 Ml Inj) 1,000 mls @ 30 mls/hr IV.SIG .Q24H GIRISH Stop: 09/24/18 08:29 Sodium Chloride (Ns Inj) 500 mls @ 30 mls/hr IV.SIG .Q10H GIRISH Miscellaneous Information ([facility] Nursing Information) 1 each OTHER UNSCH PRN PRN Reason: SEE LABEL COMMENTS Stop: 09/24/18 13:29 Sodium Chloride (Ns Flush) 2 ml IV.FLUSH BID GIRISH Sodium Chloride (Ns Flush) 2 ml IV.FLUSH PRN PRN PRN Reason: FLUSH AFTER USING IV ACCESS Allergies Allergy/AdvReac Type Severity Reaction Status Date / Time penicillin G Allergy Severe Hives Verified 09/23/18 08:06 shellfish derived Allergy Severe Hives Verified 09/23/18 08:06 Home Medications Medication Instructions Recorded Confirmed Type pantoprazole [Protonix] 40 mg PO DAILY 09/23/18 09/23/18 History Exam Vital signs: Vital Signs 09/23/18 08:05 09/23/18 13:49 09/23/18 14:00 Temperature 98.3 F 97.5 F L Pulse Rate 101 H 90 85 Respiratory Rate 20 24 19 Blood Pressure 139/76 119/72 117/76 Pulse Oximetry 100 97 09/23/18 14:15 09/23/18 14:30 09/23/18 14:45 Temperature 97.7 F Pulse Rate 84 78 77 Respiratory Rate 16 16 18 Blood Pressure 111/76 113/73 110/70 Pulse Oximetry 97 98 98 Intake & Output 09/22/18 09/23/18 09/23/18 18:59 06:59 18:59 Intake Total 250 / 250 Output Total 100 / 100 Balance 150 / 150 Weight 70.307 kg Intake: IV 250 / 250 Vancomycin Inj 1,000 MG In NS 250 / 250 Inj 250 ML @ 250 mls/hr IV.SIG ONCE ONE Rx#:[id number] Output: Urine 100 / 100 Other: # Voids 1 Weight On Admission 70.307 kg Narrative: GENERAL: WN, WD female resting in bed in NAD. SKIN: Warm and dry. No jaundice or rash. HEENT: AT/NC. Pupils equal and round. No scleral icterus. MMM. NECK: Supple no tender LAD or JVD. HEART: RRR no m/r/g. LUNGS: CTAB without wheezes or crackles. ABDOMEN: +BS, soft, NT, ND. Dressing in place over RUQ, C/D/I. EXTREMITIES: No LE edema. 2+ pedal pulses. NEURO: Awake and alert. Results - Labs CBC & Chem 7: 09/23/18 14:00 09/23/18 08:15 Labs: Short CBC 09/23/18 09/23/18 Range/Units 08:15 14:00 WBC 9.4 (4.0-11.0) th/mm3 Hgb 10.3 L 10.3 L (11.6-15.3) gm/dL Hct 31.3 L 31.1 L (35.0-46.0) % Plt Count 319 (150-450) th/mm3 [facility] 09/23/18 08:15 Sodium 137 Potassium 3.7 Chloride 101 Carbon Dioxide 27.3 BUN 15 Creatinine 0.70 Calcium 8.6 Caprini VTE Risk Assessment Caprini VTE Risk Assessment: Moderate/High Risk (score >= 2) Caprini Risk Assessment Model: Point Value = 1 Point Value = 2 Point Value = 3 Point Value = 5 Age 41-60 Minor surgery BMI > 25 kg/m2 Swollen legs Varicose veins or History of unexplained or recurrent spontaneous Oral contraceptives or hormone replacement Sepsis (< 1 month) Serious lung disease, including pneumonia (< 1 month) Abnormal pulmonary function Acute myocardial infarction Congestive heart failure (< 1 month) History of inflammatory bowel disease Medical patient at bed rest Age 61-74 Arthroscopic surgery Major open surgery (> 45 min) Laparoscopic surgery (> 45 min) Malignancy Confined to bed (> 72 hours) Immobilizing plaster cast Central venous access Age >= 75 History of VTE Family history of VTE Factor V Leiden Prothrombin [id number] Lupus anticoagulant Anticardiolipin antibodies Elevated serum homocysteine Heparin-induced thrombocytopenia Other congenital or acquired thrombophilia Stroke (< 1 month) Elective arthroplasty Hip, pelvis, or leg fracture Acute spinal cord injury (< 1 month) Prophylaxis Regimen: Total Risk Factor Score Risk Level Prophylaxis Regimen 0-1 Low Early ambulation 2 Moderate Order ONE of the following: *Sequential Compression Device (SCD) *Heparin 5000 units SQ BID 3-4 Higher Order ONE of the following medications: *Heparin 5000 units SQ TID *Enoxaparin/Lovenox 40 mg SQ daily (WT < 150 kg, CrCl > 30 mL/min) *Enoxaparin/Lovenox 30 mg SQ daily (WT < 150 kg, CrCl > 10-29 mL/min) *Enoxaparin/Lovenox 30 mg SQ BID (WT < 150 kg, CrCl > 30 mL/min) AND/OR *Sequential Compression Device (SCD) 5 or more Highest Order ONE of the following medications: *Heparin 5000 units SQ TID (Preferred with Epidurals) *Enoxaparin/Lovenox 40 mg SQ daily (WT < 150 kg, CrCl > 30 mL/min) *Enoxaparin/Lovenox 30 mg SQ daily (WT < 150 kg, CrCl > 10-29 mL/min) *Enoxaparin/Lovenox 30 mg SQ BID (WT < 150 kg, CrCl > 30 mL/min) AND *Sequential Compression Device (SCD) Assessment and Plan - Assessment (1) Liver mass Code(s): R16.0 - Hepatomegaly, not elsewhere classified Status: Acute - Plan 58 year old female with history of colorectal cancer s/p primary resection with adjuvant chemo was recently found to have a liver mass. CT A/P in June showed a new solitary 7.6 cm right lobe liver mass that was biopsied showing nonspecific hepatitis. She was referred to Dr. Phillips for resection and MRI had shown that the mass increased in size to 11.6 cm as well as 3 spleen lesions. There was a concern for malignancy therefore oncology recommended resection, and patient referred to IR first for chemoembolization. Patient underwent Y-90 hepatic radioembolization today with IR to allow for downstaging and enlargement of future liver remnant in anticipation of trisegmentectomy. Hospitalist service has been asked to admit the patient under observation for pain control. 1. Liver lesion - S/p Y-90 hepatic radioembolization today with IR - Pain control with IV morphine and Dilaudid PRN - Will watch closely for postembolization syndrome to include constitutional symptoms, abdominal pain, etc. - Patient to have hepatic resection of the mass in [place] this week - Check post-op H&H and labs in the AM 2. History of colon cancer - Followed by Dr. Barajas DVT prophylaxis: SCDs Discussed Condition With: Patient and Dr. Mcelroy (IR) Discharge Planning: Anticipate D/C tomorrow AM if no complications, pain controlled, and patient tolerating PO H&P: Quality - VTE Deep Vein Thrombosis/Pulmonary Embolism Present on Admission: No
[2018-09-23] MEDS ORDERED: HYDROmorphone PF Inj 2 MG/ML Vial IV.PUSH PRN ×2 (15:27→15:42)
--- NOTE | 2018-09-23 16:46 | IR ---
EXAM DATE: 09/23/2018 3:08 PM EST AGE/SEX: 58 years / Female INDICATIONS: 58-year-old female with history of metastatic colorectal CA with dominant 12 cm mass charu tered at segment 5 extending to segments 4 and 8. Patient is scheduled for trisegmentectomy and now p resents for portal vein embolization and TACE. CLINICAL DATA: This is the patient's initial encounter. Patient reports that signs and symptoms have been present for 1 month and indicates a pain score of 0/10. MEDICAL/SURGICAL HISTORY: Carcinoma, colon. Hepatitis C, Liver and Spleen METS, Endometrial Wai yp, Diverticulosis, Hemorrhoids . Tubal Ligation, Colonoscopy, Ruptured Disc, Port Placement. COMPARISON: No prior exams available for comparison. FLUORO TIME (min): 39.5 IMAGE SERIES: 37 ACCESS SITE: Left radial artery Right, Portal Vein CONTRAST (cc): 60 cc Omni 350, 100 cc Visipaque. ; ; ; ; Anesthesia and pain control was provided by the Anesthesia department. DEVICE(S): Left Portal vein Gelfoam ; Left Portal vein 20mm X 40mm Interlock-35 Cube Coil ; Left Portal vein 15m m X 40mm Interlock-35 Cube Coil Left Portal vein 15mm X 40mm Interlock-35 Cube Coil ; Segment 5 Hepatic Artery, LC Beads 50mg Doxorub icin. ; Left radial artery Radial Band, 24cm Prelude ; ; . . PROCEDURE : 1. Fluoroscopic guided portal vein puncture 2. Portal venography 3. Coil and Gelfoam embolization of the left portal vein 4. Ultrasound-guided puncture of the left radial artery. 5. Selective catheter placement in the celiac artery with selective angiography 6. Selective catheter placement in the SMA with selective angiography 7. Subselective catheter placement in the replaced common hepatic artery from the SMA with subselect ashley angiography 8. Subselective catheter placement in hepatic artery branches supplying segments 7, 8, 6 and 5 with subselective angiography and cone beam CT angiography 9. Chemoembolization of the segment 5 hepatic artery branch utilizing 1-300 um LC beads loaded with 50 mg doxorubicin The risks, benefits and alternatives to the procedure were explained and verbal and written consent w as obtained. The site was prepped in sterile fashion. Full sterile technique was used, including ca p, mask, sterile gloves and gown and a large sterile sheet. Hand hygiene and 2% chlorhexidine and/or betadine/alcohol prep was utilized per protocol for cutaneous antisepsis. Sterile gel and sterile p robe cover were utilized for ultrasound guidance. The skin and subcutaneous tissues were infiltrated with local anesthetic solution. Patient's abdomen overlying the liver was prepped and draped in usual sterile fashion. Appropriate in ferior right hepatic access was localized with fluoroscopy. 1% lidocaine solution was injected for lo austin anesthesia. Following several punctures with a 21-gauge Chiba needle and inferior right portal ve in branch was successfully cannulated. Subsequently, a 5 Albanian sheath was placed. 4 Albanian catheter was then advanced into the main portal vein and portal venography was performed. This demonstrated pa tency of the portal venous system. Catheter was then repositioned into the left portal vein and venog bunny was performed confirming position. Left portal vein was subsequently embolized with 3 separate interlock coils and Gelfoam slurry. Postembolization portal venography demonstrates cessation of flow in the left portal vein branches. Sheath was then removed and hemostasis obtained at the puncture si te with manual compression. With ultrasound and fluoroscopic guidance the left radial artery was punctured and a vascular sheath was placed. 5 Albanian catheter was advanced into the celiac artery and angiography was performed. This demonstrated nonstandard celiac anatomy with completely replaced hepatic artery. The left gastric ar isaias and splenic artery arise from the celiac artery. Catheter was then repositioned into the SMA and angiography was performed. This confirmed complete replacement of the hepatic artery from the SMA. C atheter was then repositioned into the replaced common hepatic artery and angiography was performed a gain confirming the position. Delayed angiography demonstrated a very hypervascular large mass in the right lobe of the liver corresponding to patient's known segment 5 mass. Subsequently, multiple hepa tic artery branches were subselected with a Renegade microcatheter and angiography was performed foll owed by cone beam CT untoward the appropriate segment 5 hepatic artery was selected and supply to the patient's dominant tumor was confirmed. Subsequently, this artery was embolized with approximately o ne third solution containing 1 to 300 um LC beads infused with 50 mg doxorubicin. Embolization was pe rformed to stasis. Follow-up angiography demonstrated stasis of flow in the segment 5 branch. Therefo re, all wires and catheters were removed. The puncture site was closed with TR band device and hemostasis was obtained. The patient tolerated t he procedure well and there were no complications. Conscious sedation was performed with the prescribed dosages and duration as above in the presence of an independent trained radiology nurse to assist in the monitoring of the patient. EKG and oximetry remained stable throughout the procedure. CONCLUSION: 1. Uncomplicated fluoroscopic guided left portal vein embolization. 2. Uncomplicated subselective TACE embolization of segment 5 hepatic artery with 1-300 um LC beads i nfused with 50 mg doxorubicin, as above. Electronically signed by: Juan Hernandez MD 09/23/2018 4:45 PM EST
[2018-09-23] MEDS: Morphine Sulfate Inj 2 MG/ML Vial IV.PUSH PRN ×2 (18:12→22:07)
[2018-09-23] MEDS: Sodium Chloride 0.9% 2 ML Flush BID IV.FLUSH SCH ×2 (19:35→21:22)
[2018-09-23 21:02] VITALS: RESP 18
[2018-09-23] MEDS: Senna/Docusate Sodium 8.6/50 MG Tablet PO SCH (21:20)
[2018-09-24] MEDS: Sod Chloride 0.9% Inj 1,000 ML IV.SIG SCH ×2 (02:31→06:12)
[2018-09-24] MEDS: Morphine Sulfate Inj 2 MG/ML Vial IV.PUSH PRN (03:40)
[2018-09-24 04:02] LABS: Hematocrit 30.9 % (35.0-46.0); Hemoglobin 10.1 gm/dL (11.6-15.3); Mean Corpuscular HGB Conc 32.7 % (32.0-36.0); Mean Corpuscular Hemoglobin 28.4 pg (27.0-34.0); Mean Platelet Volume 6.5 fL (7.0-11.0); Platelet Count 302 th/mm3 (150-450); Red Blood Count 3.55 mil/mm3 (4.00-5.30); Red Cell Distribution Width 14.6 % (11.6-17.2); White Blood Count 10.2 th/mm3 (4.0-11.0)
[2018-09-24 04:31] LABS: Alanine Aminotransferase 56 U/L (10-53); Albumin 2.8 g/dL (3.4-5.0); Alkaline Phosphatase 118 U/L (45-117); Anion Gap 6 meq/L (5-15); Aspartate Aminotransferase 136 U/L (15-37); Blood Urea Nitrogen 20 mg/dL (7-18); Calcium 8.9 mg/dL (8.5-10.1); Carbon Dioxide 31.1 meq/L (21.0-32.0); Chloride 104 meq/L (98-107); Glomerular Filtration Rate Greater Than 89 mL/min (>89); Glucose,Random 120 mg/dL (74-106); Sodium 141 meq/L (136-145); Total Protein 6.8 g/dL (6.4-8.2)
[2018-09-24] MEDS: Senna/Docusate Sodium 8.6/50 MG Tablet PO SCH (08:49)
[2018-09-24] MEDS: Sodium Chloride 0.9% 2 ML Flush BID IV.FLUSH SCH (08:50)
--- NOTE | 2018-09-24 08:59 | P.RAD ---
Subjective Interval history: Patient is status post left portal vein embolization and TACE embolization of segment 5 of the hepatic artery. She denies having any acute complaints to address at this time. Most recent laboratory studies were reviewed and essentially unremarkable. Site looks good without any signs of infection or pain. She is alert, awake, and oriented. Currently resting comfortably eating breakfast. She has a scheduled trisegmentectomy next Sunday in [place] and states she will make a follow-up appointment with our service soon after the surgery. No further issues or concerns to address at this time. Physical Exam Vital signs: Vital Signs - 24 hr 09/23/18 13:49 09/23/18 14:00 09/23/18 14:15 Temperature 97.5 F L Pulse Rate 90 85 84 Respiratory Rate 24 19 16 Blood Pressure 119/72 117/76 111/76 Pulse Oximetry 100 97 97 09/23/18 14:30 09/23/18 14:45 09/23/18 15:05 Temperature 97.7 F 98 F Pulse Rate 78 77 85 Respiratory Rate 16 18 20 Blood Pressure 113/73 110/70 120/87 Pulse Oximetry 98 98 97 09/23/18 15:20 09/23/18 15:50 09/23/18 17:00 Temperature 97.6 F Pulse Rate 75 85 90 Respiratory Rate 20 16 17 Blood Pressure 131/74 145/87 H 111/61 Pulse Oximetry 98 97 96 09/23/18 18:14 09/23/18 18:47 09/23/18 20:00 Temperature 97.3 F L 97.1 F L Pulse Rate 76 97 H Respiratory Rate 18 17 18 Blood Pressure 114/66 112/68 Pulse Oximetry 93 L 94 L 09/24/18 00:00 Temperature 97.1 F L Pulse Rate 89 Respiratory Rate 18 Blood Pressure 117/97 H Pulse Oximetry 97 Results - Labs CBC & Chem 7: 09/24/18 03:53 09/24/18 03:53 Labs: 09/24/18 09/24/18 09/23/18 03:53 03:53 14:00 WBC 10.2 RBC 3.55 L Hgb 10.1 L 10.3 L Hct 30.9 L 31.1 L Plt Count 302 Sodium 141 Potassium 5.0 D BUN 20 H Creatinine 0.67 - Imaging Impressions Embolization, Transcatheter 09/23/18 00:00 CONCLUSION: 1. Uncomplicated fluoroscopic guided left portal vein embolization. 2. Uncomplicated subselective TACE embolization of segment 5 hepatic artery with 1-300 um LC beads infused with 50 mg doxorubicin, as above.
[2018-09-24 09:31] VITALS: BP 129/71; PULSE 77; TEMP 97.2; O2SAT 93
--- NOTE | 2018-09-24 09:32 | P.PN ---
Subjective Interval history: 58 year old female with history of colorectal cancer s/p primary resection with adjuvant chemo and recent new liver and spleen lesions underwent Y-90 hepatic radioembolization today with IR to allow for downstaging and enlargement of future liver remnant in anticipation of trisegmentectomy. In follow-up for her colon cancer, she was found to have a solitary 7.6 cm right lobe liver mass on CT A/P in June. The mass was biopsied showing nonspecific hepatitis. She was referred to Dr. Phillips for resection and MRI had shown that the mass increased in size to 11.6 cm and there were also new spleen lesions. There was a concern for malignancy therefore oncology recommended resection, and patient was referred to IR first for chemoembolization. Hospitalist service has been asked to admit the patient under observation for pain control. The patient is seen in recovery. She is comfortable and denies any significant pain. She denies chest pain, shortness of breath, abdominal pain, nausea, or vomiting. She denies any adverse reactions with pain medications in the past. 09/24: Seen in her bedroom, stable and will be followed by specialist as outpatient. no nausea, vomit or diarrhea. Physical Exam Vital signs: Vital Signs 09/23/18 13:49 09/23/18 14:00 09/23/18 14:15 Temperature 97.5 F L Pulse Rate 90 85 84 Respiratory Rate 24 19 16 Blood Pressure 119/72 117/76 111/76 Pulse Oximetry 100 97 97 09/23/18 14:30 09/23/18 14:45 09/23/18 15:05 Temperature 97.7 F 98 F Pulse Rate 78 77 85 Respiratory Rate 16 18 20 Blood Pressure 113/73 110/70 120/87 Pulse Oximetry 98 98 97 09/23/18 15:20 09/23/18 15:50 09/23/18 17:00 Temperature 97.6 F Pulse Rate 75 85 90 Respiratory Rate 20 16 17 Blood Pressure 131/74 145/87 H 111/61 Pulse Oximetry 98 97 96 09/23/18 18:14 09/23/18 18:47 09/23/18 20:00 Temperature 97.3 F L 97.1 F L Pulse Rate 76 97 H Respiratory Rate 18 17 18 Blood Pressure 114/66 112/68 Pulse Oximetry 93 L 94 L 09/24/18 00:00 Temperature 97.1 F L Pulse Rate 89 Respiratory Rate 18 Blood Pressure 117/97 H Pulse Oximetry 97 Intake & Output 09/23/18 09/24/18 09/24/18 18:59 06:59 18:59 Intake Total 1250 / 1250 1000 / 1000 Output Total 100 / 100 Balance 1150 / 1150 1000 / 1000 Weight 70.307 kg 73.8 kg Intake: IV 1250 / 1250 1000 / 1000 NS Inj 1,000 ML @ 150 mls/hr IV 1000 / 1000 1000 / 1000 .SIG .[id number] [facility] Rx#:[id number] Vancomycin Inj 1,000 MG In NS 250 / 250 Inj 250 ML @ 250 mls/hr IV.SIG ONCE ONE Rx#:[id number] Output: Urine 100 / 100 Other: # Voids 1 3 Date of Last Bowel Movement 09/23/18 Weight On Admission 70.307 kg Narrative: GENERAL: This is a well-nourished, well-developed patient, in no apparent distress. CARDIOVASCULAR: Regular rate and rhythm without murmurs, gallops, or rubs. RESPIRATORY: Clear to auscultation. Breath sounds equal bilaterally. No wheezes , rales, or rhonchi. GASTROINTESTINAL: Abdomen soft, non-tender, nondistended. Normal active bowel sounds MUSCULOSKELETAL: Extremities without clubbing, cyanosis, or edema. NEURO: Alert & Oriented x4 to person, place, time, situation. Moves all ext x4 Results - Labs CBC & Chem 7: 09/24/18 03:53 09/24/18 03:53 Laboratory Results - last 24 hr 09/23/18 09/24/18 09/24/18 14:00 03:53 03:53 WBC 10.2 RBC 3.55 L Hgb 10.3 L 10.1 L Hct 31.1 L 30.9 L MCV 87.0 MCH 28.4 MCHC 32.7 RDW 14.6 Plt Count 302 MPV 6.5 L Sodium 141 Potassium 5.0 D Chloride 104 Carbon Dioxide 31.1 Anion Gap 6 BUN 20 H Creatinine 0.67 Estimated GFR Greater than 89 Random Glucose 120 H Calcium 8.9 Total Bilirubin 0.3 AST 136 H ALT 56 H Alkaline Phosphatase 118 H Total Protein 6.8 Albumin 2.8 L - Imaging Impressions Embolization, Transcatheter 09/23/18 00:00 CONCLUSION: 1. Uncomplicated fluoroscopic guided left portal vein embolization. 2. Uncomplicated subselective TACE embolization of segment 5 hepatic artery with 1-300 um LC beads infused with 50 mg doxorubicin, as above. - Procedures Embolization, Transcatheter 09/23/18 00:00 CONCLUSION: 1. Uncomplicated fluoroscopic guided left portal vein embolization. 2. Uncomplicated subselective TACE embolization of segment 5 hepatic artery with 1-300 um LC beads infused with 50 mg doxorubicin, as above. Assessment and Plan - Assessment (1) Liver mass Code(s): R16.0 - Hepatomegaly, not elsewhere classified Status: Acute - Plan 58 year old female with history of colorectal cancer s/p primary resection with adjuvant chemo was recently found to have a liver mass. CT A/P in June showed a new solitary 7.6 cm right lobe liver mass that was biopsied showing nonspecific hepatitis. She was referred to Dr. Phillips for resection and MRI had shown that the mass increased in size to 11.6 cm as well as 3 spleen lesions. There was a concern for malignancy therefore oncology recommended resection, and patient referred to IR first for chemoembolization. Patient underwent Y-90 hepatic radioembolization today with IR to allow for downstaging and enlargement of future liver remnant in anticipation of trisegmentectomy. Hospitalist service has been asked to admit the patient under observation for pain control. 1. Liver lesion - S/p Y-90 hepatic radioembolization today with IR - Pain control with IV morphine and Dilaudid PRN - Will watch closely for postembolization syndrome to include constitutional symptoms, abdominal pain, etc. - Patient to have hepatic resection of the mass in [place] this week - Check post-op H&H and labs in the AM -She has a scheduled trisegmentectomy next Sunday in [place] and states she will make a follow-up appointment with our service soon after the surgery. 2. History of colon cancer - Followed by Dr. Barajas DVT prophylaxis: SCDs Okay to discharge by IR specialist Code Status: Full code. Discussed Condition With: Patient and Nurse Miss Mcleod Discharge Planning: cleared to go to Home by Interventional Radiology.
--- NOTE | 2018-09-24 10:19 | P.DS ---
Date of admission: 09/23/18 14:58 Primary care physician: Marilynn Quarles Attending physician on discharge: Chaim Plascencia Anticipated date of discharge: 09/24/18 Brief History from admission: 58 year old female with history of colorectal cancer s/p primary resection with adjuvant chemo and recent new liver and spleen lesions underwent Y-90 hepatic radioembolization today with IR to allow for downstaging and enlargement of future liver remnant in anticipation of trisegmentectomy. In follow-up for her colon cancer, she was found to have a solitary 7.6 cm right lobe liver mass on CT A/P in June. The mass was biopsied showing nonspecific hepatitis. She was referred to Dr. Phillips for resection and MRI had shown that the mass increased in size to 11.6 cm and there were also new spleen lesions. There was a concern for malignancy therefore oncology recommended resection, and patient was referred to IR first for chemoembolization. Hospitalist service has been asked to admit the patient under observation for pain control. The patient is seen in recovery. She is comfortable and denies any significant pain. She denies chest pain, shortness of breath, abdominal pain, nausea, or vomiting. She denies any adverse reactions with pain medications in the past. PMH: colorectal cancer (diagnosed on routine screening colonoscopy 2017 s/p right hemicolectomy and chemo), enlarging liver and splenic lesions 2018, diverticulosis Surgical Hx: right hemicolectomy, ruptured disc, tubal ligation, colonoscopies Family Hx: mother from brain aneurysm, paternal grandfather had colon cancer Social Hx: , never smoked, denies EtOH DS: Diagnosis - Discharge Diagnosis (1) Liver mass Status: Acute DS: Medications - Discharge Medications Prescriptions: hydrocodone-acetaminophen [Breckenridge] 1 tab PO Q4H #12 tab DS: Summary Hospital Course: 58 year old female with history of colorectal cancer s/p primary resection with adjuvant chemo and recent new liver and spleen lesions underwent Y-90 hepatic radioembolization today with IR to allow for downstaging and enlargement of future liver remnant in anticipation of trisegmentectomy. In follow-up for her colon cancer, she was found to have a solitary 7.6 cm right lobe liver mass on CT A/P in June. The mass was biopsied showing nonspecific hepatitis. She was referred to Dr. Phillips for resection and MRI had shown that the mass increased in size to 11.6 cm and there were also new spleen lesions. There was a concern for malignancy therefore oncology recommended resection, and patient was referred to IR first for chemoembolization. Hospitalist service has been asked to admit the patient under observation for pain control. The patient is seen in recovery. She is comfortable and denies any significant pain. She denies chest pain, shortness of breath, abdominal pain, nausea, or vomiting. She denies any adverse reactions with pain medications in the past. 09/24: Seen in her bedroom, stable and will be followed by specialist as outpatient. no nausea, vomit or diarrhea. Assessment and Plan - Assessment (1) Liver mass Code(s): R16.0 - Hepatomegaly, not elsewhere classified Status: Acute - Plan 58 year old female with history of colorectal cancer s/p primary resection with adjuvant chemo was recently found to have a liver mass. CT A/P in June showed a new solitary 7.6 cm right lobe liver mass that was biopsied showing nonspecific hepatitis. She was referred to Dr. Phillips for resection and MRI had shown that the mass increased in size to 11.6 cm as well as 3 spleen lesions. There was a concern for malignancy therefore oncology recommended resection, and patient referred to IR first for chemoembolization. Patient underwent Y-90 hepatic radioembolization today with IR to allow for downstaging and enlargement of future liver remnant in anticipation of trisegmentectomy. Hospitalist service has been asked to admit the patient under observation for pain control. 1. Liver lesion - S/p Y-90 hepatic radioembolization today with IR - Pain control with IV morphine and Dilaudid PRN - Will watch closely for postembolization syndrome to include constitutional symptoms, abdominal pain, etc. - Patient to have hepatic resection of the mass in [place] this week - Check post-op H&H and labs in the AM -She has a scheduled trisegmentectomy next Sunday in [place] and states she will make a follow-up appointment with our service soon after the surgery. 2. History of colon cancer - Followed by Dr. Barajas DVT prophylaxis: SCDs Okay to discharge by IR specialist Code Status: Full code. Discussed Condition With: Patient and Nurse Miss Mcleod Discharge Planning: cleared to go to Home by Interventional Radiology. CAPPTURE Prescription Drug Monitoring Database has been queried and verified prior to prescribing the controlled substance. Acute pain exception. This patient has normal, predicted, physiological, and time limited response to an adverse mechanical stimulus associated with surgery, trauma, or acute illness as described in my notes. There is a lack of alternative treatment options other than to include the prescribed narcotic treatment for this condition. - Time Spent with Patient Total time spent providing and/or coordinating discharge services: Less than 30 minutes - Quality: VTE Deep Vein Thrombosis/Pulmonary Embolism Present on Admission: No Exam Vital signs: Vital Signs 09/23/18 13:49 09/23/18 14:00 09/23/18 14:15 Temperature 97.5 F L Pulse Rate 90 85 84 Respiratory Rate 24 19 16 Blood Pressure 119/72 117/76 111/76 Pulse Oximetry 100 97 97 09/23/18 14:30 09/23/18 14:45 09/23/18 15:05 Temperature 97.7 F 98 F Pulse Rate 78 77 85 Respiratory Rate 16 18 20 Blood Pressure 113/73 110/70 120/87 Pulse Oximetry 98 98 97 09/23/18 15:20 09/23/18 15:50 09/23/18 17:00 Temperature 97.6 F Pulse Rate 75 85 90 Respiratory Rate 20 16 17 Blood Pressure 131/74 145/87 H 111/61 Pulse Oximetry 98 97 96 09/23/18 18:14 09/23/18 18:47 09/23/18 20:00 Temperature 97.3 F L 97.1 F L Pulse Rate 76 97 H Respiratory Rate 18 17 18 Blood Pressure 114/66 112/68 Pulse Oximetry 93 L 94 L 09/24/18 00:00 09/24/18 08:00 Temperature 97.1 F L 97.2 F L Pulse Rate 89 77 Respiratory Rate 18 18 Blood Pressure 117/97 H 129/71 Pulse Oximetry 97 93 L Intake & Output 09/23/18 09/24/18 09/24/18 18:59 06:59 18:59 Intake Total 1250 / 1250 1000 / 1000 Output Total 100 / 100 Balance 1150 / 1150 1000 / 1000 Weight 70.307 kg 73.8 kg Intake: IV 1250 / 1250 1000 / 1000 NS Inj 1,000 ML @ 150 mls/hr IV 1000 / 1000 1000 / 1000 .SIG .Q6H40M [facility] Rx#:[id number] Vancomycin Inj 1,000 MG In NS 250 / 250 Inj 250 ML @ 250 mls/hr IV.SIG ONCE ONE Rx#:[id number] Output: Urine 100 / 100 Other: # Voids 1 3 Date of Last Bowel Movement 09/23/18 Weight On Admission 70.307 kg Narrative: GENERAL: This is a well-nourished, well-developed patient, in no apparent distress. CARDIOVASCULAR: Regular rate and rhythm without murmurs, gallops, or rubs. RESPIRATORY: Clear to auscultation. Breath sounds equal bilaterally. No wheezes , rales, or rhonchi. GASTROINTESTINAL: Abdomen soft, non-tender, nondistended. Normal active bowel sounds MUSCULOSKELETAL: Extremities without clubbing, cyanosis, or edema. NEURO: Alert & Oriented x4 to person, place, time, situation. Moves all ext x4 Results Procedures completed during hospitalization: Embolization, Transcatheter 09/23/18 00:00 CONCLUSION: 1. Uncomplicated fluoroscopic guided left portal vein embolization. 2. Uncomplicated subselective TACE embolization of segment 5 hepatic artery with 1-300 um LC beads infused with 50 mg doxorubicin, as above. Labs on day of discharge: Labs from last 24 hours 09/24/18 09/24/18 09/23/18 03:53 03:53 14:00 WBC 10.2 RBC 3.55 L Hgb 10.1 L 10.3 L Hct 30.9 L 31.1 L MCV 87.0 MCH 28.4 MCHC 32.7 RDW 14.6 Plt Count 302 MPV 6.5 L Sodium 141 Potassium 5.0 D Chloride 104 Carbon Dioxide 31.1 Anion Gap 6 BUN 20 H Creatinine 0.67 Estimated GFR Greater than 89 Random Glucose 120 H Calcium 8.9 Total Bilirubin 0.3 AST 136 H ALT 56 H Alkaline Phosphatase 118 H Total Protein 6.8 Albumin 2.8 L - Impressions ITS Impressions Embolization, Transcatheter 09/23/18 00:00 CONCLUSION: 1. Uncomplicated fluoroscopic guided left portal vein embolization. 2. Uncomplicated subselective TACE embolization of segment 5 hepatic artery with 1-300 um LC beads infused with 50 mg doxorubicin, as above. Discharge Plan - Discharge Disposition Patient Disposition: Discharge Home - Discharge Condition Condition: Good - Discharge Order Discharge Orders: Discharge Order (Routine); Ordered 09/24/18 Ordered By: Chaim Plascencia - Discharge Details Anticipated Discharge Date: 09/24/18 Discharge Comment: Follow up by PCP in three days. - Physicians Team Primary Care Provider: Marilynn Quarles Attending Provider: Chaim Plascencia Other Providers: Chaim Plascencia MD - Rxs /Orders / Referrals /Forms Prescriptions: New hydrocodone-acetaminophen [Breckenridge] 5-325 mg Tablet 1 tab PO Q4H Qty: 12 RF: 0 Continue pantoprazole [Protonix] 40 mg Tablet,Delayed Release (Dr/Ec) 40 mg PO DAILY Referrals: Marilynn Quarles MD [Primary Care Provider] - 10/09/18 12:30 pm
== END 2018-09-24 11:57 | disposition home or self-care (01) ==
LOC: HRIP 07:40 → HRAD 07:40 → HRIP 07:42 → N07 16:58
PROVIDERS: ADMIT Internal Medicine; ATTEND Internal Medicine